=== PATIENT | male | born 1950 | race Caucasian/White ===

== ENCOUNTER 2021-01-16 10:43 | Outpatient (REF) | payer MEDICARE, SELFPAY ==
[2021-01-16 10:50] LABS: MANUAL DIFF FLAG NO
[2021-01-16 11:12] LABS: Basophils Absolute Auto 0.1 X10*3/uL (0.0-0.2); Basophils Percent Auto 0.9 % (0-2); Eosinophils Absolute Auto 0.4 X10*3/uL (0.0-0.4); Eosinophils Percent Auto 4.7 % (0-4); Hematocrit 45.4 % (42-52); Hemoglobin 15.1 g/dl (14.0-18.0); Imm Gran Abs Auto 0.04 X10*3/uL (0.00-0.03); Imm Gran Pct Auto 0.5 % (0.0-0.4); Lymphocytes Absolute Auto 2.8 X10*3/uL (1.2-4.9); Lymphocytes Percent Auto 35.4 % (20-40); Mean Corpuscular HGB Conc 33.3 g/dl (31.0-36.0); Mean Corpuscular Hemoglobin 32.6 pg (27.0-33.0); Mean Corpuscular Volume 98.1 fL (80-98); Mean Platelet Volume 10.5 fL (9.4-12.4); Monocytes Absolute Auto 0.8 X10*3/uL (0.1-1.2); Monocytes Percent Auto 9.6 % (2-11); Neutrophils Absolute Auto 3.8 X10*3/uL (2.0-8.3); Neutrophils Percent Auto 48.9 % (45-73); Platelet Count 172 X10*3/uL (160-400); Red Blood Count 4.63 X10*6/uL (4.60-5.80); Red Cell Distribution Width 12.9 % (11.0-16.0); White Blood Count 7.8 X10*3/uL (4.8-10.8)
[2021-01-16 11:31] LABS: Alanine Aminotransferase 85 U/L (0-40); Albumin Level 4.4 g/dL (3.5-5.0); Alkaline Phosphatase 45 U/L (39-117); Anion Gap 12 (12-20); Aspartate Amino Transferase 53 U/L (5-37); Bilirubin Total 1.6 mg/dL (0.0-1.0); Blood Urea Nitrogen 11 mg/dL (9-16); Calcium 9.2 mg/dL (8.4-10.2); Carbon Dioxide 26 mmol/L (22-29); Chloride 105 mmol/L (96-108); Cholesterol 229 mg/dL; Estimated Glomerular Filt Rate > 60; Glucose Fasting 111 mg/dL (60-99); HDL Cholesterol 38 mg/dL; LDL Cholesterol Calculated 159 mg/dl; Potassium 4.6 mmol/L (3.3-5.1); Sodium 138 mmol/L (135-145); Total Protein 7.1 g/dL (6.5-8.0); Triglycerides 160 mg/dL
[2021-01-16 11:45] LABS: Glucose Urine UA NEG (NEG); Leukocyte Esterase Urine NEG (NEG); Nitrite Urine NEG (NEG); Specific Gravity - Urine 1.015 (1.005-1.025); Urine Blood NEG (NEG); Urine Ketones NEG (NEG); Urine Protein NEG (NEG-TRACE)
[2021-01-16 11:54] LABS: Appearance Urine CLEAR; Color Urine YELLOW
== END 2021-01-16 10:44 | disposition home or self-care (01) ==
LOC: HO.LNP 10:43
PROVIDERS: Visit Provider Internal Medicine
DX: I10 Essential (primary) hypertension (principal); F41.9 Anxiety disorder, unspecified; K21.9 Gastro-esophageal reflux disease without esophagitis; Z12.5 Encounter for screening for malignant neoplasm of prostate
CPT/HCPCS: 80053; 80061; 81003; 84153; 85025

== ENCOUNTER 2021-02-20 08:37 | Outpatient (REF) | payer MEDICARE, SELFPAY ==
--- NOTE | ~2021-02-20 | US_ITS ---
EXAMINATION: US ABDOMEN COMPLETE CLINICAL INFORMATION: Elevated liver function tests. COMPARISON: None TECHNIQUE: Real-time imaging of the abdominal viscera. FINDINGS: PANCREAS: The head of the body of pancreas is homogeneous in echotexture. The tail of pancreas obscured by overlying gas. ABDOMINAL AORTA: The proximal, mid, and distal segments are normal in caliber. INFERIOR VENA CAVA: Visualized portions are normal. LIVER: There is diffuse increased liver echogenicity. The liver is normal in size. The liver contour is normal. No focal hepatic lesion. There is no intrahepatic biliary duct dilatation seen. GALLBLADDER: Normal. The gallbladder is physiologically distended without evidence of stones, sludge, polyps, wall thickening or pericholecystic fluid. COMMON BILE DUCT: Normal in caliber measuring 0.4 cm in diameter. RIGHT KIDNEY: Normal. No hydronephrosis. No renal calculi or focal parenchymal lesions. The kidney measures 11.8 cm in maximum dimension. LEFT KIDNEY: Normal. No hydronephrosis. No renal calculi or focal parenchymal lesions. The kidney measures 11.7 cm in maximum dimension. SPLEEN: Normal. The spleen measures 11.0 cm in maximum dimension. FREE FLUID: None. US/US abdomen complete IMPRESSION: Diffuse hepatic steatosis without any focal lesion. Rest of the abdominal ultrasound is unremarkable.
== END 2021-02-20 08:38 | disposition home or self-care (01) ==
LOC: HO.US 08:37
PROVIDERS: PCP Internal Medicine; Visit Provider Internal Medicine
DX: R79.89 Other specified abnormal findings of blood chemistry (principal)
CPT/HCPCS: 76700

== ENCOUNTER 2021-02-20 10:04 | Outpatient (REF) | payer MEDICARE, SELFPAY ==
[2021-02-20 11:48] LABS: HBS Num1 1.25 mIU/mL (0-7.99); HBc Num1 0.27 S/CO (0.00-0.79); HBsAGNum1 0.23 S/CO (0.00-0.99); Hepatitis B Core Antibody Nonreactive (Nonreactive); Hepatitis B Surface Antigen Negative (Negative); ~HepC Num1 0.07 S/CO (0.00-0.79); ~Hepatitis B Surface Antibody NONREACTIVE (Nonreactive); ~Hepatitis C Antibody Nonreactive (Nonreactive)
[2021-02-21 08:22] LABS: Hepatitis A Antibody IgM 0.17 Index (0-0.79); ~Hepatitis A Antibody IgM Nonreactive (Nonreactive)
== END 2021-02-20 10:05 | disposition home or self-care (01) ==
LOC: HO.LNP 10:04
PROVIDERS: Visit Provider Internal Medicine
DX: R16.0 Hepatomegaly, not elsewhere classified (principal); R79.89 Other specified abnormal findings of blood chemistry
CPT/HCPCS: 86704; 86706; 86709; 86803; 87340

== ENCOUNTER 2022-01-21 11:03 | Outpatient (REF) | payer MEDICARE, SELFPAY ==
[2022-01-21 11:09] LABS: MANUAL DIFF FLAG NO
[2022-01-21 11:20] LABS: Appearance Urine Clear; Color Urine Yellow; Glucose Urine UA Negative (Negative); Leukocyte Esterase Urine Negative (Negative); Nitrite Urine Negative (Negative); Urine Blood Negative (Negative); Urine Ketones Trace mg/dL (Negative); Urine Protein Negative (Neg-Trace)
[2022-01-21 11:25] LABS: Bacteria Urine None Seen (None Seen); Hyaline Casts Urine 0-2 /LPF (0-2); RBC Urine 0-2 /HPF (0-2); Squamous Epithelial Cell Urine 0-2 /HPF (0-2); WBC Urine 0-5 /HPF (0-5)
[2022-01-21 11:39] LABS: Basophils Absolute Auto 0.1 X10*3/uL (0.0-0.2); Basophils Percent Auto 1.1 % (0-2); Eosinophils Absolute Auto 0.4 X10*3/uL (0.0-0.4); Eosinophils Percent Auto 4.6 % (0-4); Hematocrit 43.6 % (42.0-52.0); Hemoglobin 14.7 g/dl (14.0-18.0); Imm Gran Abs Auto 0.08 X10*3/uL (0.00-0.03); Imm Gran Pct Auto 0.9 % (0.0-0.4); Lymphocytes Absolute Auto 3.3 X10*3/uL (1.2-4.9); Lymphocytes Percent Auto 36.3 % (20-40); Mean Corpuscular HGB Conc 33.7 g/dl (31.0-36.0); Mean Platelet Volume 10.8 fL (9.4-12.4); Monocytes Absolute Auto 0.9 X10*3/uL (0.1-1.2); Monocytes Percent Auto 9.4 % (2-11); Neutrophils Absolute Auto 4.4 x10*3/uL (2.0-8.3); Neutrophils Percent Auto 47.7 % (45-73); Platelet Count 168 X10*3/uL (160-400); Red Blood Count 4.45 X10*6/uL (4.60-5.80); Red Cell Distribution Width 12.9 % (11.0-16.0); White Blood Count 9.2 X10*3/uL (4.8-10.8)
[2022-01-21 11:59] LABS: Alanine Aminotransferase 73 U/L (0-40); Albumin Level 4.3 g/dL (3.5-5.0); Alkaline Phosphatase 41 U/L (39-117); Anion Gap 15 (12-20); Aspartate Amino Transferase 39 U/L (5-37); Bilirubin Total 1.1 mg/dL (0.0-1.0); Blood Urea Nitrogen 13 mg/dL (9-16); Calcium 9.4 mg/dL (8.4-10.2); Carbon Dioxide 25 mmol/L (22-29); Chloride 102 mmol/L (96-108); Cholesterol 231 mg/dL; Estimated Glomerular Filt Rate > 60; Glucose Fasting 115 mg/dL (60-99); HDL Cholesterol 38 mg/dL; LDL Cholesterol Calculated 158 mg/dl; Potassium 4.2 mmol/L (3.3-5.1); Sodium 138 mmol/L (135-145); Total Protein 7.1 g/dL (6.5-8.0); Triglycerides 178 mg/dL
[2022-01-21 12:08] LABS: PSA,Total (Free>4and<10) 1.19 ng/mL (0.00-4.00)
== END 2022-01-21 11:04 | disposition home or self-care (01) ==
LOC: HO.LNP 11:03
PROVIDERS: Visit Provider Internal Medicine
DX: Z12.5 Encounter for screening for malignant neoplasm of prostate (principal); I10 Essential (primary) hypertension; K75.81 Nonalcoholic steatohepatitis (NASH)
CPT/HCPCS: 80053; 80061; 81001; 84153; 85025

== ENCOUNTER 2023-01-23 07:15 | Outpatient (REF) | payer MEDICARE, SELFPAY ==
[2023-01-23 11:52] LABS: MANUAL DIFF FLAG NO
[2023-01-23 13:52] LABS: Basophils Absolute Auto 0.1 X10*3/uL (0.0-0.2); Basophils Percent Auto 0.7 % (0-2); Eosinophils Absolute Auto 0.3 X10*3/uL (0.0-0.4); Eosinophils Percent Auto 3.4 % (0-4); Hemoglobin 15.2 g/dl (14.0-18.0); Imm Gran Abs Auto 0.03 X10*3/uL (0.00-0.03); Imm Gran Pct Auto 0.4 % (0.0-0.4); Lymphocytes Absolute Auto 2.8 X10*3/uL (1.2-4.9); Lymphocytes Percent Auto 33.7 % (20-40); Mean Corpuscular Hemoglobin 32.7 pg (27.0-33.0); Mean Corpuscular Volume 98.9 fL (80.0-98.0); Mean Platelet Volume 10.8 fL (9.4-12.4); Monocytes Absolute Auto 0.8 X10*3/uL (0.1-1.2); Monocytes Percent Auto 9.8 % (2-11); Neutrophils Absolute Auto 4.3 x10*3/uL (2.0-8.3); Platelet Count 164 X10*3/uL (160-400); Red Blood Count 4.65 X10*6/uL (4.60-5.80); Red Cell Distribution Width 13.1 % (11.0-16.0); White Blood Count 8.3 X10*3/uL (4.8-10.8)
[2023-01-23 14:04] LABS: Appearance Urine Clear; Color Urine Yellow; Glucose Urine UA Negative (Negative); Leukocyte Esterase Urine Trace (Negative); Nitrite Urine Negative (Negative); PH 6.5 (5.0-9.0); Specific Gravity - Urine 1.015 (1.005-1.025); UMIC TRIGGER UACC YES; Urine Blood Negative (Negative); Urine Ketones Negative (Negative); Urine Protein Negative (Neg-Trace)
[2023-01-23 14:11] LABS: Bacteria Urine None Seen (None Seen); Hyaline Casts Urine 0-2 /LPF (0-2); RBC Urine 0-2 /HPF (0-2); Squamous Epithelial Cell Urine 0-2 /HPF (0-2); WBC Urine 0-5 /HPF (0-5)
[2023-01-23 14:21] LABS: Alanine Aminotransferase 64 U/L (0-40); Albumin Level 4.3 g/dL (3.5-5.0); Alkaline Phosphatase 37 U/L (39-117); Anion Gap 10 (12-20); Aspartate Amino Transferase 37 U/L (5-37); Bilirubin Total 1.3 mg/dL (0.0-1.0); Blood Urea Nitrogen 14 mg/dL (9-16); Calcium 9.7 mg/dL (8.4-10.2); Carbon Dioxide 27 mmol/L (22-29); Chloride 103 mmol/L (96-108); Cholesterol 218 mg/dL (<200); Estimated Glomerular Filt Rate > 60; Glucose Random 105 mg/dL (60-115); HDL Cholesterol 38 mg/dL (>40); LDL Cholesterol Calculated 153 mg/dL (<100); Potassium 4.4 mmol/L (3.3-5.1); Sodium 136 mmol/L (135-145); Total Protein 7.6 g/dL (6.5-8.0); Triglycerides 137 mg/dL (<150)
[2023-01-23 17:06] LABS: Prostate Specific Antigen 2.86 ng/mL (<0.05-4.0)
== END 2023-01-23 07:16 | disposition home or self-care (01) ==
LOC: HO.LNP 07:15
PROVIDERS: Visit Provider Internal Medicine
DX: Z12.5 Encounter for screening for malignant neoplasm of prostate (principal); I10 Essential (primary) hypertension; K75.81 Nonalcoholic steatohepatitis (NASH)
CPT/HCPCS: 80053; 80061; 81001; 84153; 85025

== ENCOUNTER 2023-02-27 10:59 | Outpatient (REF) | payer MEDICARE, SELFPAY ==
[2023-02-27 12:46] LABS: PSA,Total (Free>4and<10) 1.63 ng/mL (0.00-4.00)
== END 2023-02-27 11:00 | disposition home or self-care (01) ==
LOC: HO.10HDLNP 10:59
PROVIDERS: Visit Provider Internal Medicine
DX: R97.20 Elevated prostate specific antigen [PSA] (principal); Z12.5 Encounter for screening for malignant neoplasm of prostate
CPT/HCPCS: 84153

== ENCOUNTER 2024-01-30 11:13 | Outpatient (REF) | payer MEDICARE, SELFPAY ==
[2024-01-30 11:16] LABS: MANUAL DIFF FLAG NO
[2024-01-30 11:27] LABS: Appearance Urine Clear; Basophils Absolute Auto 0.1 X10*3/uL (0.0-0.2); Basophils Percent Auto 0.9 % (0-2); Color Urine Yellow; Eosinophils Absolute Auto 0.3 X10*3/uL (0.0-0.4); Eosinophils Percent Auto 4.2 % (0-4); Glucose Urine UA Negative (Negative); Hematocrit 45.1 % (42.0-52.0); Hemoglobin 15.1 g/dl (14.0-18.0); Imm Gran Abs Auto 0.05 X10*3/uL (0.00-0.03); Imm Gran Pct Auto 0.6 % (0.0-0.4); Leukocyte Esterase Urine Negative (Negative); Lymphocytes Absolute Auto 2.8 X10*3/uL (1.2-4.9); Lymphocytes Percent Auto 36.3 % (20-40); Mean Corpuscular HGB Conc 33.5 g/dl (31.0-36.0); Mean Corpuscular Hemoglobin 33.1 pg (27.0-33.0); Mean Corpuscular Volume 98.9 fL (80.0-98.0); Mean Platelet Volume 10.9 fL (9.4-12.4); Monocytes Absolute Auto 0.6 X10*3/uL (0.1-1.2); Monocytes Percent Auto 7.9 % (2-11); Neutrophils Absolute Auto 3.9 x10*3/uL (2.0-8.3); Neutrophils Percent Auto 50.1 % (45-73); Nitrite Urine Negative (Negative); Platelet Count 165 X10*3/uL (160-400); Red Blood Count 4.56 X10*6/uL (4.60-5.80); Urine Blood Negative (Negative); Urine Ketones Negative (Negative); Urine Protein Negative (Neg-Trace); White Blood Count 7.8 X10*3/uL (4.8-10.8)
[2024-01-30 11:32] LABS: Bacteria Urine None Seen (None Seen); Hyaline Casts Urine 0-2 /LPF (0-2); RBC Urine 0-2 /HPF (0-2); Squamous Epithelial Cell Urine 0-2 /HPF (0-2); WBC Urine 0-5 /HPF (0-5)
[2024-01-30 11:42] LABS: Alanine Aminotransferase 60 U/L (0-40); Albumin Level 4.2 g/dL (3.5-5.0); Alkaline Phosphatase 35 U/L (39-117); Anion Gap 11 (12-20); Aspartate Amino Transferase 36 U/L (5-37); Bilirubin Total 1.1 mg/dL (0.0-1.0); Blood Urea Nitrogen 16 mg/dL (9-16); Calcium 9.6 mg/dL (8.4-10.2); Carbon Dioxide 29 mmol/L (22-29); Chloride 102 mmol/L (96-108); Cholesterol 226 mg/dL (<200); Estimated Glomerular Filt Rate > 60; Glucose Fasting 103 mg/dL (60-99); HDL Cholesterol 38 mg/dL (>40); LDL Cholesterol Calculated 152 mg/dL (<100); Potassium 4.3 mmol/L (3.3-5.1); Sodium 138 mmol/L (135-145); Total Protein 7.3 g/dL (6.5-8.0); Triglycerides 184 mg/dL (<150)
[2024-01-30 12:04] LABS: PSA,Total (Free>4and<10) 1.37 ng/mL (0.00-4.00)
== END 2024-01-30 11:14 | disposition home or self-care (01) ==
LOC: HO.LNP 11:13
PROVIDERS: Visit Provider Internal Medicine
DX: I10 Essential (primary) hypertension (principal); Z12.5 Encounter for screening for malignant neoplasm of prostate
CPT/HCPCS: 80053; 80061; 81001; 84153; 85025

== ENCOUNTER 2025-02-21 11:57 | Outpatient (REF) | payer MEDICARE, SELFPAY ==
--- OUTSIDE RECORDS SUMMARY | 2024-01-26 08:32 | XMS_ITS ---
Author Organization Dwayne Bliss MD Address [address] [place], [place] [id number] Care Team Providers Care Accounts Receivable Executive Name Role Phone Dwayne Bliss Primary Care Provider [phone] Encounters Encounter Location Date Provider Diagnosis Dwayne Bliss MD [address] [place], [place] [id number] 01/26/2024 Dwayne Bliss Plan Of Treatment Next Appt Details Provider Name:Dwayne Golden ier, 02/28/2025 01:00:00 PM, [address], [address], [place], [place], [id number], Progress Notes * DAVID SWEET JrDOB: [birth year] (74 yo M)Acc No.[id number]:01/26/2024 Patient: Vickie LANCASTER DAVID :1950 A ge:74 Y S ex:Male Address:[place], [address] * true * Date: Generated for Printi ng/Faxing/eTransmitting on: 0 02/21/2025 02:39 PM EDT
--- OUTSIDE RECORDS SUMMARY | 2024-01-30 03:30 | XMS_ITS ---
Author Organization Dwayne Bliss MD Address [address] [place], [place] [phone] Care Team Providers Care Investment Officer Name Role Phone Dwayne Bliss Primary Care Provider Results Component Value Reference Range Notes Complete Blood Count Auto Di ff Reviewed date:01/30/2024 12:20:41 PM Interpretation: Performing Lab:[facility], [address] [place] [phone] Notes/Report: White Blood Count 7.8 4.8-10.8 X10*3/uL Red Blood Count 4.56 4.60-5.80 X10*6/uL Hemoglobin 15.1 14.0-18.0 g/dl Hematocrit 45.1 42.0-52.0 % Mean Corpuscular Volume 98.9 80.0-98.0 fL Mean Corpuscular Hemoglobin 33.1 27.0-33.0 pg Mean Corpuscular HGB Conc 33.5 31.0-36.0 g/dl Red Cell Distribution Width 13.0 11.0-16.0 % Platelet Count 165 160-400 X10*3/uL Mean Platelet Volume 10.9 9.4-12.4 fL Neutrophils Percent Auto 50.1 45-73 % Imm Gran Pct Auto 0.6 0.0-0.4 % Lymphocytes Percent Auto 36.3 20-40 % Monocytes Percent Auto 7.9 2-11 % Eosinophils Percent Auto 4.2 0-4 % Basophils Percent Auto 0.9 0-2 % NRBC Pct Auto 0.0 0.0-0.2 /100WBC Neutrophils Absolute Auto 3.9 2.0-8.3 x10*3/u L Imm Gran Abs Auto 0.05 0.00-0.03 X10*3/uL Lymphocytes Absolute Auto 2.8 1.2-4.9 X10*3/u L Monocytes Absolute Auto 0.6 0.1-1.2 X10*3/uL Eosinophils Absolute Auto 0.3 0.0-0.4 X10*3/u L Basophils Absolute Auto 0.1 0.0-0.2 X10*3/uL NRBC Abs Auto 0.000 0.0-0.012 X10*3/uL Comprehensive [place]. Panel Fa st Reviewed date:01/30/2024 12:21:13 PM Interpretation: Performing Lab:[address] [phone] Notes/Report: Sodium 138 135-145 mmol/L Potassium 4.3 3.3-5.1 mmol/L Chloride 102 96-108 mmol/L Carbon Dioxide 29 22-29 mmol/L Anion Gap 11 12-20 Blood Urea Nitrogen 16 9-16 mg/dL Creatinine 0.89 0.5-1.4 mg/dL Estimated Glomerular Filt Rate > 60 NOTE: For -Danish individuals, multiply the result by 1.210. Chronic Kidney Disease: Estimated GFR < 60 mL/min/1.73m2 Severe Kidney Disease: Estimated GFR < 15 mL/min/1.73m2 Glucose Fasting 103 60-99 mg/dL A fasting glucose from 100-125 mg/dl is considered impaired (pre-diabetes). Calcium 9.6 8.4-10.2 mg/dL Bilirubin Total 1.1 0.0-1.0 mg/dL Aspartate Amino Transferase 36 5-37 U/L Alanine Aminotransferase 60 0-40 U/L Total Protein 7.3 6.5-8.0 g/dL Albumin Level 4.2 3.5-5.0 g/dL Alkaline Phosphatase 35 39-117 U/L Lipid Panel Reviewed date:01/30/2024 12:18:20 PM Interpretation: Performing Lab:[facility], [address] [place] [phone] Notes/Report: Triglycerides 184 <150 mg/dL Desirable Triglyceride: less than 150 mg/dL Borderline High Triglyceride 150-199 mg/dL High Triglyceride: 200-499 mg/dL Very High Triglyceride: greater than or equal to 5OO mg/dL Cholesterol 226 <200 mg/dL Desirable Cholesterol: less than 200 mg/dL Borderline High Cholesterol: 200-239 mg/dL High Cholesterol: greater than 239 mg/dL LDL Cholesterol Calculated 152 <100 mg/dL Desirable LDL: less than 100 mg/dL Near Optimal/Above Optimal LDL: 110-129 mg/dL Borderline High LDL: 130-159 mg/dL High LDL: 160-189 mg/dL Very High LDL: greater than or equal to 190 mg/dL HDL Cholesterol 38 >40 mg/dL Desirable HDL: greater than 40 mg/dL Note: This HDL assay may give artificially low results in patients with liver disease. PSA,Total (Free>4and<10) Reviewed date:01/30/2024 12:17:54 PM Interpretation: Performing Lab:[facility], [address] [place] [phone] Notes/Report: PSA,Total (Free>4and<10) 1.37 0.00-4.00 ng/mL A Free PSA was not performed: The percentage of Free PSA can be used to enhance the differentiation of prostate cancer from benign prostatic disease in subjects whose PSA levels are between 4.0 and 10.0 ng/mL. For subjects whose PSA levels are below 4.0 or above 10.0 ng/mL, the risk of prostate cancer is determined on the basis of the PSA alone. Therefore the % Free PSA is recommended only for those subjects whose PSA levels are between 4.0 and 10.0 ng/mL. PSA methodology: Stallings Alinity i Chemiluminescent Microparticle Immunoassay (CMIA) UA ClnCatch+Micro w/rflx Cul t Reviewed date:01/30/2024 12:23:40 PM Interpretation: Performing Lab:[facility], [address] [place] [phone] Notes/Report: [id number] Urine, Clean Catch Color Urine Yellow Appearance Urine Clear PH 6.0 5.0-9.0 Glucose Urine UA Negative Negative mg/dL Urine Blood Negative Negative Specific [place] - Urine 1.020 1.005-1.025 Urine Protein Negative Neg-Trace mg/dL Urine Ketones Negative Negative mg/dL Nitrite Urine Negative Negative Leukocyte Esterase Urine Negative Negative RBC Urine 0-2 0-2 /HPF WBC Urine 0-5 0-5 /HPF Squamous Epithelial Cell Urine 0-2 0-2 /HPF Bacteria Urine None Seen None Seen Hyaline Casts Urine 0-2 0-2 /LPF REASON FOR VISIT yearly fasting labs Encounters Encounter Location Date Provider Diagnosis Dwayne Bliss MD [address] [place], [place] [phone] 01/30/2024 Dwayne Bliss Essential hypertension I10 Assessments Encounter Date Diagnosis (ICD Code) Assessment Notes Treatment Notes Treatment Clinical Notes Section Notes 01/30/2024 Essential hypertension (ICD-10 - I10) Plan Of Treatment Next Appt Details Provider Name:Dwayne Cristofer Golden ier, 02/28/2025 01:00:00 PM, [address], [address], [place], [place], [id number], Progress Notes * MICKI DAVID JrDOB: [birth year] (75 yo M)Acc No.[id number]:01/30/2024 Progress Note Patient: Vickie LANCASTER DAVID Provider: Janelle Bliss MD :1950 A ge:74 Y S ex:Male Date:01/30/2024 Address: [address], [place], [id number] Subjective: * Chief Complaints: * 1 . Yearly fasting labs. * Medical History: Objective: * Vitals: Assessment: * Assessment: 1. E ssential hypertension - I10 (Primary) Plan: * Treatment: * Procedure Codes: 3 6415 VENIPUNCT, ROUTINE* * * The named appointment provid er may or may not be the originator of this progress note, and it is not deemed complete until electronically signed by the appointment provider. Sign off status: Pending * Provider: Janelle Bliss MD Date: 01/30/2024 Generated for Ivory choe/Loly/Salvadoritting on: 0 02/21/2025 02:40 PM EDT
--- OUTSIDE RECORDS SUMMARY | 2024-02-24 10:30 | XMS_ITS ---
Author Organization Dwanye Bliss MD Address [address] [place], [place] [phone] Care Team Providers Care Clinical Operations Manager Name Role Phone Dwayne Bliss Primary Care Provider Allergies No Known Allergies REASON FOR VISIT comp visit Medications Medication SIG (Take, Route, Frequency, Duration) Notes Start Date End Date Status CeleXA 10 MG 1 tablet Orally Once a day Not-Taking PriLOSEC OTC 20 MG 1 tablet 30 minutes before morning meal Orally Once a day for 30 day(s) 12/24/2019 Not-Taking Lisinopril-hydroCHLOROth iazide 20-12.5 MG take 1 tablet by mouth every day Orally Once a day for 90 days Active clonazePAM 0.5 MG 1 tablet at bedtime Orally Once a day Not-Taking Social History Tobacco Use: Social History Observation Description Date Details (start date - stop date) Never Smoker NA - NA Tobacco Use/Smoking Question Answer Notes Patient is a nonsmoker Additional Findings: Tobacco Non-User Cu rrent non-smoker, currently using no form of tobacco Alcohol Screen Question Answer Notes Did you have a drink contain ing alcohol in the past year? Yes How often did you have a dri nk containing alcohol in the past year? Monthly or less (1 point) How many drinks did you have on a typical day when you were drinking in the past year? 1 or 2 drinks (0 point) How often did you have 6 or more drinks on one occasion in the past year? Never (0 point) Points 1 Interpretation Negative Problems Problem Type SNOMED Code ICD Code Onset Dates Problem Status W/U Status Risk Notes Problem 95120789 Hypercholesterem ia (E78.00) Active confirmed Vital Signs Blood pressure systolic 122 mm Hg 02/24/20 Blood pressure diastolic 80 mm Hg 024 Height 70.5 in 02/24/2024 Weight 268 lbs 02/24/2024 BMI 37.91 kg/m2 02/24/2024 weight is up 9 pounds since 01-30-23 Encounters Encounter Location Date Provider Diagnosis Dwayne Bliss MD [address] [place] [address] Drive [address] [place], [place] [phone] 02/24/2024 Dwayne Bliss BROWN (nonalcoholic steatohepatitis) K75.81 ; Essential hypertension I10 and Hypercholesteremia E78.00 Assessments Encounter Date Diagnosis (ICD Code) Assessment Notes Treatment Notes Treatment Clinical Notes Section Notes 02/24/2024 BROWN (nonalcoholic steatohepatitis) (ICD-10 - K75.81) advised weight loss 02/24/2024 Essential hypertensi on (ICD-10 - I10) well controlled, will continue current regiment 02/24/2024 Hypercholesteremia (ICD-10 - E78.00) needs to lose weight, advised on diet Plan Of Treatment Medication Medication Name Sig Start Date Stop Date Notes Lisinopril-hydroCHLOROthiazi de 20-12.5 MG take 1 tablet by mouth every day Orally Once a day for 90 days Treatment Notes Assessment Notes BROWN (nonalcoholic steatohepatitis) advi sed weight loss Essential hypertension well controlled, will continue current regiment Hypercholesteremia needs to lose weight , advised on diet Next Appt Details Follow Up: 1 Year, Reason: Provider Name:Dwayne mario, 02/28/2025 01:00:00 PM, [address] [place] [address] Drive, [address], [place], [place], [phone], Progress Notes * DAVID SWEET JrDOB: [birth year] (74 yo M)Acc No.[id number]:02/24/2024 Patient: Vickie LANCASTER DAVID Provider: Janelle Bliss MD :1950 A ge:74 Y S ex:Male Date:02/24/2024 Address: [address], [place], [phone] Subjective: * Chief Complaints: * C omp visit * HPI: D epression Screening: PHQ-9 L ittle interest or pleasure in doing things N ot at all, F eeling down, depressed, or hopeless N ot at all, T rouble falling or staying asleep, or sleeping too much N ot at all, F eeling tired or having little energy N ot at all, P oor appetite or overeating N ot at all, F eeling bad about yourself or that you are a failure, or have let yourself or your family down N ot at all, T rouble concentrating on things, such as reading the newspaper or watching television N ot at all, M oving or speaking so slowly that other people could have noticed; or the opposite, being so fidgety or restless that you have been moving around a lot more than usual N ot at all, T houghts that you would be better off or of hurting yourself in some way N ot at all, T otal Score 0 . I nterpretation and Intervention D epression Screening Findings N egative, F ollow-Up for Depression : review of PHQ-9 found negative result, no follow-up needed. C ommunication Needs: Communication Needs D oes the patient have a hearing impairment N o, D oes the patient have a vision impairment? Y es, I f yes, what is the vision impairment? G lasses, D oes the patient have a cognition impairment? N o. F all Risk: History H ave you had any falls with injury in the past year? N o, H ave you had two or more falls in the past year? N o. S LUIZA Questions: SDOH Questions I n the past year have you been worried about losing housing? N o, I n the past year have you or any family members you live with been unable to get any of the following when it was really needed? Check all that apply: N one. S ymptom(s): patient is a 74 yo male here for review of recent labs and follow up of chronic issues. * ROS: G eneral/Constitutional: Patient denies c hills , fatigue , fever , headache. ? E NT: Patient denies d ecreased sense of smell , any loss of taste , sore throat. R espiratory: Patient denies s hortness of breath at rest shortness of breath with exertion. C ardiovascular: Patient denies c hest pain with exertion chest pain at rest. G astrointestinal: Patient denies a bdominal pain change in bowel habits. G enitourinary: Patient denies f requent urination difficulty urinating.? M usculoskeletal: Patient denies m uscle aches. P atient complaining of?fingers locking in the morning when he awakens. P eripheral Vascular: Patient denies r ed and blue toes. * Medical History: * Surgical History: * Hospitalization/Major Diagno stic Procedure: * Family History: F ather: 90 yrs, diagnosed with Cancer. M other: 96 yrs. 1 son(s) , 1 daughter(s) . . Father- Cancer, Denies mental health/substance abuse family history, Denies mental health/substance abuse family history, No pertinent family medical history, Denies mental health/substance abuse family history, Denies mental health/substance abuse family history. * Social History: T obacco Use: T obacco Use/Smoking P atient is a n onsmoker, A dditional Findings: Tobacco Non-User C urrent non-smoker, currently using no form of tobacco. D rugs/Alcohol: A lcohol Screen D id you have a drink containing alcohol in the past year? Y es, H ow often did you have a drink containing alcohol in the past year? M onthly or less (1 point), H ow many drinks did you have on a typical day when you were drinking in the past year? 1 or 2 drinks (0 point), H ow often did you have 6 or more drinks on one occasion in the past year? N ever (0 point), P oints 1 , I nterpretation N egative. M iscellaneous: C affeine: yes, frequency:, 1-2 cups per day. Children: yes. no Community involvements. no Exercise. Home smoke detector use: yes. Housing: owning. Living with: family. Marital status: single. Occupation: weeks/months/years, retired. Pets: cats: dogs:1 cat 1 dog. no Travel outside of the [place]. * Medications: T akingLisinopril-hydroCHLOROthiazide 20-.5 MG Tablet TAKE 1 TABLET BY MOUTH EVERY DAY Taking Lisinopril-hydroCHLOROthiazide 20-12.5 MG Tablet TAKE 1 TABLET BY MOUTH EVERY DAY Not-Taking/PRNPriLOSEC OTC 20 MG Tablet Delayed Release 1 tablet 30 minutes before morning meal Orally Once a dayCeleXA 10 MG Tablet 1 tablet Orally Once a dayclonazePAM 0.5 MG Tablet 1 tablet at bedtime Orally Once a dayMedication List reviewed and reconciled with the patientNot-Taking/PRN PriLOSEC OTC 20 MG Tablet Delayed Release 1 tablet 30 minutes before morning meal Orally Once a dayNot-Taking/PRN CeleXA 10 MG Tablet 1 tablet Orally Once a dayNot-Taking/PRN clonazePAM 0.5 MG Tablet 1 tablet at bedtime Orally Once a dayMedication List reviewed and reconciled with the patient * Allergies: N .K.D.A.yes[Allergies Verified] Objective: * Vitals: H t: 70.5, Wt:268, BMI:37.91, BP:122/80 weight is up 9 pounds since 01-30-23. * P ast Orders: L ab:Complete Blood Count Auto Diff (Order Date - 01/30/2024) (Collection Date - 01/30/2024) Value Reference Range White Blood Count 7.8 4.8-10.8 - X10*3/uL Red Blood Count 4.56 L 4.60-5.80 - X10*6/uL Hemoglobin 15.1 14.0-18.0 - g/dl Hematocrit 45.1 42.0-52.0 - % Mean Corpuscular Volume 98.9 H 80.0-98.0 - fL Mean Corpuscular Hemoglobin 33.1 H 27.0-33.0 - pg Mean Corpuscular HGB Conc 33.5 31.0-36.0 - g/ dl Red Cell Distribution Width 13.0 11.0-16.0 - % Platelet Count 165 160-400 - X10*3/uL Mean Platelet Volume 10.9 9.4-12.4 - fL Neutrophils Percent Auto 50.1 45-73 - % Imm Gran Pct Auto 0.6 H 0.0-0.4 - % Lymphocytes Percent Auto 36.3 20-40 - % Monocytes Percent Auto 7.9 2-11 - % Eosinophils Percent Auto 4.2 H 0-4 - % Basophils Percent Auto 0.9 0-2 - % NRBC Pct Auto 0.0 0.0-0.2 - /100WBC Neutrophils Absolute Auto 3.9 2.0-8.3 - x10* 3/uL Imm Gran Abs Auto 0.05 H 0.00-0.03 - X10*3/uL Lymphocytes Absolute Auto 2.8 1.2-4.9 - X10* 3/uL Monocytes Absolute Auto 0.6 0.1-1.2 - X10*3/ uL Eosinophils Absolute Auto 0.3 0.0-0.4 - X10* 3/uL Basophils Absolute Auto 0.1 0.0-0.2 - X10*3/ uL NRBC Abs Auto 0.000 0.0-0.012 - X10*3/uL L ab:Comprehensive [place]. Panel Fast (Order Date 01/30/2024) (Collection Date - 01/30/2024) Value Reference Range Sodium 138 135-145 - mmol/L Bilirubin Total 1.1 H 0.0-1.0 - mg/dL Aspartate Amino Transferase 36 5-37 - U/L Alanine Aminotransferase 60 H 0-40 - U/L Total Protein 7.3 6.5-8.0 - g/dL Albumin Level 4.2 3.5-5.0 - g/dL Alkaline Phosphatase 35 L 39-117 - U/L Potassium 4.3 3.3-5.1 - mmol/L Chloride 102 96-108 - mmol/L Carbon Dioxide 29 22-29 - mmol/L Anion Gap 11 L 12-20 - Blood Urea Nitrogen 16 9-16 - mg/dL Creatinine 0.89 0.5-1.4 - mg/dL Estimated Glomerular Filt Rate > 60 - Glucose Fasting 103 H 60-99 - mg/dL Calcium 9.6 8.4-10.2 - mg/dL L ab:Lipid Panel (Order Date - 01/30/2024) (Collection Date - 01/30/2024) Value Reference Range Triglycerides 184 H <150 - mg/dL Cholesterol 226 H <200 - mg/dL LDL Cholesterol Calculated 152 H <100 - mg/dL HDL Cholesterol 38 L >40 - mg/dL L ab:UA ClnCatch+Micro w/rflx Cult (Order Date - 01/30/2024) (Collection Date - 01/30/2024) Value Reference Range Color Urine Yellow - Appearance Urine Clear - PH 6.0 5.0-9.0 - Glucose Urine UA Negative Negative - mg/dL Urine Blood Negative Negative - Specific [place] - Urine 1.020 1.005-1.025 - Urine Protein Negative Neg-Trace - mg/dL Urine Ketones Negative Negative - mg/dL Nitrite Urine Negative Negative - Leukocyte Esterase Urine Negative Negative - RBC Urine 0-2 0-2 - /HPF WBC Urine 0-5 0-5 - /HPF Squamous Epithelial Cell Urine 0-2 0-2 - /HP F Bacteria Urine None Seen None Seen - Hyaline Casts Urine 0-2 0-2 - /LPF L ab:PSA,Total (Free>4and<10) (Order Date - 01/30/2024) (Collection Date - 01/30/2024) Value Reference Range PSA,Total (Free>4and<10) 1.37 0.00-4.00 - ng/ mL * Examination: G eneral Examination: GENERAL APPEARANCE: alert, well hydrated, in no distress . HEAD: normocephalic. EYES: BOTH EYES, normal. EARS: BOTH EARS, normal. THROAT: no erythema, no exudate, pharynx normal. NECK/THYROID: n o cervical lymphadenopathy, no carotid bruit. SKIN: good turgor, no suspicious lesions. HEART: no murmurs, rubs, gallops, regular rate and rhythm. LUNGS: no wheezes, rales, rhonchi, good air movement, clear to auscultation bilaterally. ABDOMEN: abnormal with liver palpable 4 inches down. RECTAL EXAM: stool guaiac negative, no masses palpable.? MALE GENITOURINARY: uncircumcised, testes descended bilaterally, no testicular mass. EXTREMITIES: no edema. Assessment: * Assessment: 1. N HOLLAND (nonalcoholic steatohepatitis) - K75.81 (Primary) 2 . E ssential hypertension - I10 3 . H ypercholesteremia - E78.00 Plan: * Treatment: 2. E ssential hypertension Notes: well controlled, will continue current regiment 3. H ypercholesteremia Notes: needs to lose weight, advised on diet 4. O thers Refill Lisinopril-hydroCHLOROthiazide Tablet, 20-12.5 MG, take 1 tablet by mouth every day, Orally, Once a day, 90 days, 90 Tablet, Refills 3. * Procedure Codes: * Follow Up: 1 Year * * Sign off status: Completed true * Provider: Janelle Bliss MD Date: 0 02/24/2024 Generated for Ivory choe/Loly/Artemio on: 02/21/2025 02:40 PM EDT History and Physical Notes * HPI (History of Present Illness) Category Sub-Category Detail Notes Category Not es Symptom(s) patient is a 74 yo male here for review of recent labs and follow up of chronic issues. Depression Screening PHQ-9 Little inte rest or pleasure in doing things: Not at all Feeling down, depressed, or hopeless: No t at all Trouble falling or staying asleep, or sl eeping too much: Not at all Feeling tired or having little energy: N ot at all Poor appetite or overeating: Not at all Feeling bad about yourself o r that you are a failure, or have let yourself or your family down: Not at all Trouble concentrating on thi ngs, such as reading the newspaper or watching television: Not at all Moving or speaking so slowly that other people could have noticed; or the opposite, being so fidgety or restless that you have been moving around a lot more than usual: Not at all Thoughts that you would be b garo off or of hurting yourself in some way: Not at all Total Score: 0 Interpretation and Intervention Depression Jesus herzog Findings: Negative Follow-Up for Depression: : review of PH Q-9 found negative result, no follow-up needed SDOH Questions SDOH Questions In the past year have you been worried about losing housing?: No In the past year have you or any family members you live with been unable to get any of the following when it was really needed? Check all that apply:: None Fall Risk History Have you had any falls with injury i n the past year?: No Have you had two or more falls in the st year?: No Communication Needs Communication Needs Does the patient have a hearing impairment: No Does the patient have a vision impairmen t?: Yes If yes, what is the vision impairment?: Glasses Does the patient have a cognition impair ment?: No Examination Category Sub-Category Detail Notes Category Not es General Examination GENERAL APPEARANCE: alert, w ell hydrated, in no distress HEAD: normocephalic EYES: BOTH EYES, normal EARS: BOTH EARS, normal THROAT: no erythema, no exud ate, pharynx normal NECK/THYROID: no cervical lymphade nopathy, no carotid bruit HEART: no murmurs, rubs, ga llops, regular rate and rhythm LUNGS: no wheezes, rales, r honchi, good air movement, clear to auscultation bilaterally ABDOMEN: abnormal with liver palpable 4 inches down SKIN: good turgor, no susp icious lesions EXTREMITIES: no edema MALE GENITOURINARY: uncircumcised, teste s descended bilaterally, no testicular mass RECTAL EXAM: stool guaiac negativ e, no masses palpable
--- OUTSIDE RECORDS SUMMARY | 2025-02-21 03:00 | XMS_ITS ---
Author Organization Dwayne Bliss MD Address [address] [place], [place] [id number] Care Team Providers Care Internet Project Manager Name Role Phone Dwayne Bliss Primary Care Provider Results Component Value Reference Range Notes Complete Blood Count Auto Di ff (Not yet reviewed by provider) Interpretation: Performing Lab:[facility], [address] [place] [phone] Notes/Report: White Blood Count 8.3 4.8-10.8 X10*3/uL Red Blood Count 4.42 4.60-5.80 X10*6/uL Hemoglobin 14.7 14.0-18.0 g/dl Hematocrit 43.6 42.0-52.0 % Mean Corpuscular Volume 98.6 80.0-98.0 fL Mean Corpuscular Hemoglobin 33.3 27.0-33.0 pg Mean Corpuscular HGB Conc 33.7 31.0-36.0 g/dl Red Cell Distribution Width 13.1 11.0-16.0 % Platelet Count 168 160-400 X10*3/uL Mean Platelet Volume 10.8 9.4-12.4 fL Neutrophils Percent Auto 49.2 45-73 % Imm Gran Pct Auto 0.5 0.0-0.4 % Lymphocytes Percent Auto 34.8 20-40 % Monocytes Percent Auto 9.7 2-11 % Eosinophils Percent Auto 4.8 0-4 % Basophils Percent Auto 1.0 0-2 % NRBC Pct Auto 0.0 0.0-0.2 /100WBC Neutrophils Absolute Auto 4.1 2.0-8.3 x10*3/u L Imm Gran Abs Auto 0.04 0.00-0.03 X10*3/uL Lymphocytes Absolute Auto 2.9 1.2-4.9 X10*3/u L Monocytes Absolute Auto 0.8 0.1-1.2 X10*3/uL Eosinophils Absolute Auto 0.4 0.0-0.4 X10*3/u L Basophils Absolute Auto 0.1 0.0-0.2 X10*3/uL NRBC Abs Auto 0.000 0.0-0.012 X10*3/uL Lipid Panel Reviewed date:02/21/2025 12:33:15 PM Interpretation: Performing Lab:[address] [phone] Notes/Report: Triglycerides 190 <150 mg/dL Desirable Triglyceride: less than 150 mg/dL Borderline High Triglyceride 150-199 mg/dL High Triglyceride: 200-499 mg/dL Very High Triglyceride: greater than or equal to 5OO mg/dL Cholesterol 221 <200 mg/dL Desirable Cholesterol: less than 200 mg/dL Borderline High Cholesterol: 200-239 mg/dL High Cholesterol: greater than 239 mg/dL LDL Cholesterol Calculated 146 <100 mg/dL Desirable LDL: less than 100 mg/dL Near Optimal/Above Optimal LDL: 110-129 mg/dL Borderline High LDL: 130-159 mg/dL High LDL: 160-189 mg/dL Very High LDL: greater than or equal to 190 mg/dL HDL Cholesterol 37 >40 mg/dL Desirable HDL: greater than 40 mg/dL Note: This HDL assay may give artificially low results in patients with liver disease. PSA,Total (Free>4and<10) Reviewed date:02/21/2025 12:46:07 PM Interpretation: Performing Lab:[facility], [address] [place] [phone] Notes/Report: PSA,Total (Free>4and<10) 1.69 0.00-4.00 ng/mL A Free PSA was not [...] (CMIA) UA ClnCatch+Micro w/rflx Cul t Reviewed date:02/21/2025 12:34:36 PM Interpretation: Performing Lab:[facility], [address] [place] [phone] Notes/Report: Urine, Clean Catch Color Urine Yellow Appearance Urine Clear PH 5.5 5.0-9.0 Glucose Urine UA Negative Negative mg/dL Urine Blood Negative Negative Specific [place] - Urine 1.020 1.005-1.025 Urine Protein Negative [...] Date Provider Diagnosis Dwayne Bliss MD [address] [place] [phone] 02/21/2025 Dwayne Bliss Essential hypertensi on I10 and Hypercholesteremia E78.00 Assessments Encounter Date Diagnosis (ICD Code) Assessment Notes Treatment Notes Treatment Clinical Notes Section Notes 02/21/2025 Essential hypertensi on (ICD-10 - I10) 02/21/2025 Hypercholesteremia (ICD-10 - E78.00) Plan Of Treatment Pending Test Test Name Order Date Complete Blood Count Auto Diff 5 Comprehensive [place]. Panel Fast 5 Next Appt Details Provider Name:Dwayne Golden iebacilio, 02/28/2025 01:00:00 PM, [address], [address], [place], [place], [phone], Progress Notes * DAVID SWEET JrDOB: [birth year] (75 yo M)Acc No.[id number]:02/21/2025 Progress Note Patient: Vickie LANCASTERDAVID Jr Provider: Janelle Bliss MD :1950 A ge:75 Y S ex:Male Date:02/21/2025 Address: [address], [facility], [id number] Subjective: * Chief Complaints: * 1 . Yearly fasting labs. * Medical History: Objective: * Vitals: Assessment: * Assessment: 1. E ssential hypertension - I10 (Primary) 2 . H ypercholesteremia - E78.00? Plan: * Treatment: 2. H ypercholesteremia L AB: Complete Blood Count Auto Diff (Collection Date & Time - 02/21/2025 07:00 AM) L AB: Comprehensive [place]. Panel Fast L AB: Lipid Panel (Collection Date & Time - 02/21/2025 07:00 AM) L AB: PSA,Total (Free>4and<10) (Collection Date & Time - 02/21/2025 07:00 AM) L AB: UA ClnCatch+Micro w/rflx Cult (Collection Date & Time - 02/21/2025 07:00 AM) * Procedure Codes: 3 6415 VENIPUNCT, ROUTINE* * * The named appointment provid er may or may not be the originator of this progress note, and it is not deemed complete until electronically signed by the appointment provider. Sign off status: Pending * Provider: Janelle Bliss MD Date: 02/21/2025 Generated for Ivory choe/Loly/eTangelsmitting on: 02/21/2025 02:40 PM EDT
[2025-02-21 12:00] LABS: MANUAL DIFF FLAG NO
[2025-02-21 12:04] LABS: Appearance Urine Clear; Glucose Urine UA Negative (Negative); PH 5.5 (5.0-9.0); Specific Gravity - Urine 1.020 (1.005-1.025)
[2025-02-21 12:07] LABS: Hematocrit 43.6 % (42.0-52.0); Hemoglobin 14.7 g/dl (14.0-18.0); Imm Gran Abs Auto 0.04 X10*3/uL (0.00-0.03); Imm Gran Pct Auto 0.5 % (0.0-0.4); Lymphocytes Absolute Auto 2.9 X10*3/uL (1.2-4.9); Mean Corpuscular HGB Conc 33.7 g/dl (31.0-36.0); Mean Corpuscular Hemoglobin 33.3 pg (27.0-33.0); Mean Corpuscular Volume 98.6 fL (80.0-98.0); NRBC Abs Auto 0.000 X10*3/uL (0.0-0.012); NRBC Pct Auto 0.0 /100WBC (0.0-0.2); Platelet Count 168 X10*3/uL (160-400); Red Blood Count 4.42 X10*6/uL (4.60-5.80); White Blood Count 8.3 X10*3/uL (4.8-10.8)
[2025-02-21 12:15] LABS: Alanine Aminotransferase 72 U/L (0-40); Albumin Level 4.4 g/dL (3.5-5.0); Alkaline Phosphatase 40 U/L (39-117); Anion Gap 10 (12-20); Aspartate Amino Transferase 42 U/L (5-37); Blood Urea Nitrogen 13 mg/dL (9-16); Calcium 9.1 mg/dL (8.4-10.2); Carbon Dioxide 28 mmol/L (22-29); Chloride 104 mmol/L (96-108); Cholesterol 221 mg/dL (<200); Estimated Glomerular Filt Rate > 60; HDL Cholesterol 37 mg/dL (>40); Potassium 4.4 mmol/L (3.3-5.1); Sodium 138 mmol/L (135-145); Total Protein 7.1 g/dL (6.5-8.0); Triglycerides 190 mg/dL (<150)
[2025-02-21 12:36] LABS: PSA,Total (Free>4and<10) 1.69 ng/mL (0.00-4.00)
--- OUTSIDE RECORDS SUMMARY | 2025-02-21 14:40 | XMS_ITS | Clinical Summary ---
Author Organization [facility] Address [address] [place] [address] Care Team Providers Care Welder Oxyhydrogen Name Role Phone Vashti Gerber MD Primary Care Provider [phone] Kaveh Estrella MANAGER BUDGET Unavailable [phone] Allergies No known active allergies Medications LISINOPRIL ORAL Take by mouth. Active albuterol HFA 90 mcg/actuation inhalerIndicatio ns:Acute URI,Cough Inhale 2 puffs every 4 (four) hours as needed for wheezing (cough). 1 each 2 Active Additional Information Patient not taking.Reported on 12/15/2024 lisinopriL-hydro chlorothiazide (PRINZIDE) 20-12.5 mg per tablet daily. 9 Active PriLOSEC OTC 20 mg EC tablet Take 20 mg by mouth in the morning. 0 Active albuterol HFA 90 mcg/actuation inhalerIndicatio ns:Acute URI,Persistent cough Inhale 2 puffs every 4 (four) hours as needed for wheezing (cough). 1 each 4 Active Additional Information Patient not taking.Reported on 12/15/2024 predniSONE (DELTASONE) 10 mg tabletIndication s:Acute URI,Persistent cough 5 tabs day #1, then 4 tabs day #2, then 3 tabs day #3, then 2 tabs day #4, then 1 tab day #5. Dispense 15 tabs 15 tablet 4 Active Additional Information Patient not taking.Reported on 12/15/2024 escitalopram (LEXAPRO) 10 mg tabletIndication s:Panic disorder with agoraphobia and moderate panic attacks Take 1 tablet (10 mg total) by mouth in the morning. 90 tablet 5 Active Active Problems Problem Noted Date Diagnosed Date Insomnia due to other mental disorder 02/16/2020 Assessment & Plan (10/17/2020 9:33 AM EDT): 1) Resolved with improvement in anxiety. Has not required use of trazodone. Assessment & Plan (07/18/2020 11:37 AM EST): Psychological condition is improving with treatment. Continue current treatment regimen. Psychological condition will be reassessed in 3 months. 1) Has not required use of trazodone lately. He has 50 mg PRN available should he require it. Assessment & Plan (04/18/2020 2:59 PM EST): Psychological condition is improving with treatment. Continue current treatment regimen. Psychological condition will be reassessed at the next regular appointment. 1) Continue trazodone 25-50 mg at bedtime PRN for sleep. Will not refill, as patient has only used this medication once. Sleep has regulated without need for further pharmacological intervention. Assessment & Plan (02/16/2020 5:38 PM EDT): 1) Start trazodone 25 mg - 50 mg qhs PRN for sleep. Patient can increase dose up to 100 mg if needed. Essential hypertension 01/05/2020 Panic disorder with agoraphobia and moderate toscano ic attacks 01/05/2020 Assessment & Plan (10/17/2020 9:33 AM EDT): 1) Continue Lexapro 10 mg daily. 2) Transfer to [facility] clinic. Assessment & Plan (07/18/2020 11:38 AM EST): Psychological condition is improving with treatment. Continue current treatment regimen. Psychological condition will be reassessed in 3 months. 1) Continue Lexapro 10 mg daily. Assessment & Plan (04/18/2020 2:59 PM EST): Psychological condition is improving with treatment. Continue current treatment regimen. Psychological condition will be reassessed at the next regular appointment. 1) Continue Lexapro 10 mg daily. Assessment & Plan (02/16/2020 5:34 PM EDT): Psychological condition is improving with treatment. Continue current treatment regimen. Psychological condition will be reassessed in 3 months. 1) Continue Lexapro 10 mg daily. 2) Stop Klonopin 0.5 mg bid. Patient has not required continued use of this medication. This medication was used on a temporary basis to control severe panic attacks. Assessment & Plan (01/19/2020 4:03 PM EDT): Psychological condition is improving with treatment. Continue current treatment regimen. Psychological condition will be reassessed in 4 weeks. 1) Continue Lexapro 10 mg daily. 2) Will not refill Klonopin this visit. He has about 6 pills left. We can consider another short script of Klonopin if panic attacks recur. However, this will not be a snf medication. Assessment & Plan (01/05/2020 7:33 PM EDT): Psychological condition is worsening. Medication changes per orders. Psychological condition will be reassessed 2 weeks. 1) Stop Ativan. 2) Start Lexapro 5 mg for 4 days and then increase to 10 mg daily. 3) Start Klonopin 0.5 mg bid PRN for 14 days. We will use this medication to manage anxiety and help with sleep in the short term. Klonopin will not be continued as a snf prescription. Encounters Date Type Department Care Team Description 12/15/2024 1:30 PM EDT [facility] Visit [facility] Department of Psychiatry [address] [place] [id number] Kaveh Estrella APRN Napuli, Sarah G, APRN Panic disorder with agoraphobia and moderate panic attacks (Primary Dx) from Last 3 Months Social History Tobacco Use Types Packs/Day Years Used Date Smoking Tobacco: Never Smokeless Tobacco: Never Tobacco Cessation:Counseling Given: Not Answered Alcohol Use Standard Drinks/Week Comments Yes 0 (1 standard drink = 0.6 oz pur e alcohol) [facility] Utilities Answer Date Recorded In the past 12 months has e electric, gas, oil, or water [place] threatened to shut off services in your home? No 08/06/2023 Humiliation, Afraid, Rape, and Kick questionnair e Answer Date Recorded Within the last year, have y ou been afraid of your partner or ex-partner? No 08/06/2023 Within the last year, have y ou been humiliated or emotionally abused in other ways by your partner or ex-partner? No Within the last year, have y ou been kicked, hit, slapped, or otherwise physically hurt by your partner or ex-partner? No 08/06/2023 Within the last year, have y ou been raped or forced to have any kind of sexual activity by your partner or ex-partner? No 08/06/2023 Social Connection and Isolation Panel Answer Date Recorded In a typical week, how many times do you talk on the phone with family, friends, or neighbors? More than three times a week 08/06/2023 How often do you get togethe r with friends or relatives? Once a week 08/06/2023 How often do you attend chur ch or lutheran services? Never 08/06/2023 Do you belong to any clubs o r organizations such as scientologist groups, unions, fraternal or athletic groups, or school groups? No 08/06/2023 How often do you attend meet ings of the clubs or organizations you belong to? Never 08/06/2023 Are you , , di vorced, , never , or living with a partner? Living with partner 08/06/2023 AUDIT-C Answer Date Recorded Q1: How often do you have a drink containing alc ohol? Monthly or less 08/06/2023 Q2: How many drinks containi ng alcohol do you have on a typical day when you are drinking? 1 or 2 08/06/2023 Q3: How often do you have si x or more drinks on one occasion? Less than monthly 08/06/2023 Overall Financial Resource Strain (CARDIA) Answe r Date Recorded How hard is it for you to pa y for the very basics like food, housing, medical care, and heating? Not very hard 08/06/2023 PHQ-2 Answer Date Recorded PHQ-2 Score 0 12/15/2024 Exercise Vital Sign Answer Date Recorde d On average, how many days pe r week do you engage in moderate to strenuous exercise (like a brisk walk)? 3 days 08/06/2023 On average, how many minutes do you engage in exercise at this level? 20 min 08/06/2023 Hunger Vital Sign Answer Date Recorded Within the past 12 months, y ou worried that your food would run out before you got the money to buy more. Never true 08/06/19 24 Within the past 12 months, t he food you bought just didn't last and you didn't have money to get more. Never true 08/06/2023 PRAPARE - Transportation Answer Date Re corded In the past 12 months, has l ack of transportation kept you from medical appointments or from getting medications? No 11/2023 In the past 12 months, has l ack of transportation kept you from meetings, work, or from getting things needed for daily living? No 08/06/2023 Housing Stability Vital Sign Answer Gene e Recorded In the last 12 months, was t here a time when you were not able to pay the mortgage or rent on time? No 08/06/2023 Number of Places Lived in the Last Year Not on f ile 08/06/2023 In the last 12 months, was t here a time when you did not have a steady place to sleep or slept in a penitentiary (including now)? No 08/06/2023 Sex and Gender Information Value Date Recorded Sex Assigned at Not on file Legal Sex Male 11:53 AM EST Gender Identity Not on file Sexual Orientation Not on file Last Filed Vital Signs Vital Sign Reading Time Taken Comments Blood Pressure 142/87 12/15/2024 1:44 PM EDT Pulse 74 12/15/2024 1:44 PM EDT Temperature 36.9 C (98.4 F) 09/09/2023 4:46 PM EDT Respiratory Rate 16 02/19/2023 9:29 AM EDT Oxygen Saturation 96% 09/09/2023 4:46 PM EDT Inhaled Oxygen Concentration - - Weight 120 kg (264 lb) 12/15/2024 1:44 PM EDT Height 180.3 cm (5' 11 ) 12/15/2024 1:44 PM EDT Body Mass Index 36.82 12/15/2024 1:44 PM EDT Plan of Treatment Upcoming Encounters Date Type Department Care Team (Late st Contact Info) Description 04/18/2025 10:00 AM EST Office Visit [facility] Department of Psychiatry [address] [place] [address] Kaveh Estrella, MANAGER BUDGET [address] [place] [address] Health Maintenance Due Date Last Done Comments CT Colonography 1950 Colonoscopy 1950 Colorectal Cancer Screening 1950 FIT-DNA (Cologuard) 1950 FIT 1950 FOBT 1950 Flex Sigmoidoscopy - 5y 1950 HIV Screening 1950 Medicare Annual Wellness (AWV) 1950 DTaP,Tdap,and Td Vaccines (1 - Tdap) 01/23/1970 Hepatitis C Screening 01/23/1970 Pneumococcal Vaccine, 50+ Ye ars (1 of 1 - PCV) 01/23/2002 Zoster Vaccines (1 of 2) 01/23/2002 COVID-19 Vaccine (1 - 2023-2 5 season) 2025 Influenza Vaccine (#1) 2025 HPV Vaccines Aged Out No longer eligi ble based on patient's age to complete this topic Hepatitis A Vaccines Aged Out No long er eligible based on patient's age to complete this topic Meningococcal Vaccine Aged Out No sowmya sherri eligible based on patient's age to complete this topic Insurance MEDICARE PART A & B [facility] MEDICARE BEHAVIORAL HEALTH Care Teams Welder Oxyhydrogen Relationship Specialty Start Date End Date Vashti Gerber MD [address] [place] [address] [place] [address] PCP - General 07/06/18 Kaveh Estrella APRN [address] [place] [address] Advanced Nurse Practitioner Psychiatry 01/17/21
--- OUTSIDE RECORDS SUMMARY | 2025-02-21 14:41 | XMS_ITS | Patient Health Record ---
Author Organization Dwayne Bliss MD Address [address] [place], [place] [id number] Care Team Providers Care Monotype Operator Name Role Phone Dwayne Bliss Primary Care Provider [phone] Allergies No Known Allergies Results Component Value Reference Range Notes Comprehensive Met. Panel (No t yet reviewed by provider) Interpretation:02-28-2025 Performing Lab:[facility], [address] [place] [phone] Notes/Report: Sodium 138 135-145 mmol/L Potassium 4.4 3.3-5.1 mmol/L Chloride 104 96-108 mmol/L Carbon Dioxide 28 22-29 mmol/L Anion Gap 10 12-20 Blood Urea Nitrogen 13 9-16 mg/dL Creatinine 0.81 0.5-1.4 mg/dL Estimated Glomerular Filt Rate > 60 Chronic Kidney Disease: Estimated GFR < 60 mL/min/1.73m2 Severe Kidney Disease: Estimated GFR < 15 mL/min/1.73m2 Glucose Random 105 60-115 mg/dL Calcium 9.1 8.4-10.2 mg/dL Bilirubin Total 0.7 0.0-1.0 mg/dL Aspartate Amino Transferase 42 5-37 U/L Alanine Aminotransferase 72 0-40 U/L Total Protein 7.1 6.5-8.0 g/dL Albumin Level 4.4 3.5-5.0 g/dL Alkaline Phosphatase 40 39-117 U/L Complete Blood Count Auto Di ff (Not yet reviewed by provider) Interpretation: Performing Lab:[address] [phone] Notes/Report: White Blood Count 8.3 4.8-10.8 X10*3/uL [...] Panel Reviewed date:02/21/2025 12:33:15 PM Interpretation: Performing Lab:[facility], [address] [place] [phone] Notes/Report: Triglycerides 190 <150 mg/dL Desirable Triglyceride: [...] (Free>4and<10) Reviewed date:02/21/2025 12:46:07 PM Interpretation: Performing Lab:[address] [phone] Notes/Report: PSA,Total (Free>4and<10) 1.69 0.00-4.00 ng/mL A [...] t Reviewed date:02/21/2025 12:34:36 PM Interpretation: Performing Lab:[address] [phone] Notes/Report: Urine, Clean Catch Color Urine Yellow Appearance Urine Clear PH 5.5 5.0-9.0 Glucose Urine UA Negative Negative mg/dL Urine Blood Negative Negative Specific [place] - Urine 1.020 1.005-1.025 Urine Protein Negative Neg-Trace mg/dL Urine Ketones Negative Negative mg/dL Nitrite Urine Negative Negative Leukocyte Esterase Urine Negative Negative RBC Urine 0-2 0-2 /HPF WBC Urine 0-5 0-5 /HPF Squamous Epithelial Cell Urine 0-2 0-2 /HPF Bacteria Urine None Seen None Seen Hyaline Casts Urine 0-2 0-2 /LPF Reason For Referral No Information Medications Medication SIG (Take, Route, Frequency, Duration) [...] at bedtime Orally Once a day Not-Taking Immunizations Vaccine Route Administration Date Status Comme nts Fluarix Quadrivalent IM Intramuscular 04/05/2019 Administe red Influenza High Dose IM Intramuscular 02/04/2020 Administer ed SARS-COV-2 Pfizer Unknown 08/30/2020 Administered SARS-COV-2 Pfizer Unknown 09/21/2020 Administered Fluarix Quadrivalent IM Intramuscular 02/20/2021 Administe red SARS-COV-2 Pfizer Unknown 05/11/2021 Administered Fluarix Quadrivalent Unknown 02/27/2023 Refused Social History Tobacco Use: Social History Observation [...] Problem Status W/U Status Risk Notes Problem 73631201 Anxiety (F41.9) Active confirmed Problem 365793565 Gastroesophageal reflux disease without esophagitis (K21.9) Active confirmed Problem 55615991 Essential hypertension (I10) Active confirmed Problem 552620750 BROWN (nonalcohol ic steatohepatitis) (K75.81) Active confirmed Problem 28743922 Hypercholesterem ia (E78.00) Active confirmed Problem [id number] Hydrocele in sandoval lt (N43.3) Active confirmed Vital Signs Blood pressure diastolic 80 mm Hg 02/24/2024 jazmine ght is up 9 pounds since 01-30-23 Height 70.5 in 02/24/2024 weight is up 9 pounds since 01-30-23 Blood pressure systolic 122 mm Hg 02/24/2024 weig ht is up 9 pounds since 01-30-23 Weight 268 lbs 02/24/2024 weight is up 9 pounds since 01-30-23 BMI 37.91 kg/m2 02/24/2024 weight is up 9 pounds since 01-30-23 Encounters Encounter Location Date Provider Diagnosis Dwayne Bliss MD [address] [place] [address] Drive [address] [place] [phone] 02/21/2025 Dwayne Bliss Essential hypertensi on I10 and Hypercholesteremia E78.00 Dwayne Bliss MD [address] [place] [address] Drive [address] [place] [phone] 02/24/2024 Dwayne Bliss BROWN (nonalcoholic steatohepatitis) K75.81 ; Essential hypertension I10 and Hypercholesteremia E78.00 Assessments Encounter Date Diagnosis (ICD Code) Assessment Notes Treatment Notes Treatment Clinical Notes Section Notes 02/21/2025 Essential hypertensi on (ICD-10 - I10) 02/24/2024 BROWN (nonalcoholic steatohepatitis) (ICD-10 - K75.81) advised weight loss 02/24/2024 Essential hypertensi on (ICD-10 - I10) well controlled, will continue current regiment 02/21/2025 Hypercholesteremia (ICD-10 - E78.00) 02/24/2024 Hypercholesteremia (ICD-10 - E78.00) needs to lose weight, advised on diet Plan Of Treatment Pending Test Test Name Order Date XR GI SERIES 12/24/2019 Complete Blood Count Auto Diff 5 Comprehensive Met. Panel 02/21/2025 Comprehensive [place]. Panel Fast 5 US abdomen complete 01/25/2021 Next Appt Details Provider Name:Dwayne Golden ier, 02/28/2025 01:00:00 PM, [address] [place] [address], Suite [facility], [place], [place], [phone], Insurance Providers Payer Name Payer Address Payer Phone Subscriber Number Group Number Insured Name Patient Relationship to Insured Coverage Start Date Coverage End Date MEDICARE [employer] [address] [place] [address] [id number] DAVID SWEET Self - patient is the insured MEDEX BC OF [facility] [id number] [place] [address] [phone] [id number] DAVID SWEET Self - patient is the insured Medical (General) History Medical History History ICD Code never had colonoscopy. refuses. lucita reeder and refuses
--- OUTSIDE RECORDS SUMMARY | 2025-02-21 14:41 | XMS_ITS ---
Author Name [facility] Organization Unknown History of Medication Use Medication Directions Dispensed Refills Start Date End Date Stat fluticasone propionate (FLONASE) 50 mcg/actuation nasal spray Administer 2 sprays into each nostril in the morning for 14 days. 09/09/2023 09/24/2023 active benzonatate (Tessalon Perles) 100 mg capsule Take 1 capsule (100 mg total) by mouth 3 (three) times a day as needed for cough for up to 7 days. 02/14/2022 09/17/2023 active albuterol HFA 90 mcg/actuation inhaler Inhale 2 puffs every 4 (four) hours as needed for wheezing (cough). 02/14/2022 active LISINOPRIL ORAL Take by mouth. a ctive Problems Problem Status Onset Date Problem Type Date of Resoluti on Source Panic disorder with agoraphobia and moderate panic attacks active 2020-01-05 ProblemAct [facility] Persistent cough active En[facility]DiagnosisAct [facility] Acute URI active EncounterDiagnosisAct [facility] Essential hypertension active 2020-01-05 [facility]Act [facility] Insomnia due to other mental disorder active 2020-02-16 ProblemAct [facility] Encounters Encounter Type Encounter Reason Primary Diagnosis Location Date [facility]ulatory [facility] 06/03/2024 Ambulatory Acute upper respiratory infection, unspe Acute upper respiratory infection, unspecified [facility] 09/09/2023 Ambulatory Acute pharyngitis, unspecified Acute pharyngitis, unspecified [facility] 02/19/2023 Ambulatory Rash and other nonspecific skin eruption [facility] 11/04/2022 Ambulatory Rash and other nonspecific skin eruption [facility] 11/02/2022 Ambulatory Viral infection, unspecified [facility] 10/23/2022 Ambulatory Acute upper respiratory infection, unspecified [facility] 02/14/2022 Ambulatory Insomnia due to other mental disorder [facility] 04/23/2021 Care Team Organization Name Specialty Phone Email Start Date End [facility] 021 04/23/2021
== END 2025-02-21 11:58 | disposition home or self-care (01) ==
LOC: HO.LNP 11:57
PROVIDERS: Visit Provider Internal Medicine
DX: Z12.5 Encounter for screening for malignant neoplasm of prostate (principal); I10 Essential (primary) hypertension; E78.00 Pure hypercholesterolemia, unspecified
CPT/HCPCS: 80053; 80061; 81001; 84153; 85025